=== PATIENT | female | born 2000 | race Two or more races ===

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

== ENCOUNTER 2019-02-19 18:44 | Emergency (ER) | payer OTHER ==
[~2019-02-19] VITALS: Ht 167.6 cm; Wt 57.2 kg
[2019-02-19] MEDS ORDERED: DOLOGEN CAPLET1 EACH PO (20:57)
[2019-02-19] MEDS ORDERED: TUSNEL LIQUID178 ML PO (20:57)
[2019-02-19] MEDS ORDERED: ZITHROMAX500 MG PO (20:57)
[2019-02-19] MEDS ORDERED: IPRAT-ALBUT 0.5-3 ML IH (20:57)
== END 2019-02-19 22:04 | disposition home or self-care (01) ==
LOC: ER 18:44
DX: B34.9 Viral infection, unspecified (principal); J06.9 Acute upper respiratory infection, unspecified

== ENCOUNTER 2019-09-04 15:12 | Emergency (ER) | payer OTHER ==
[~2019-09-04] VITALS: Ht 170.2 cm; Wt 63.0 kg
[~2019-09-04 15:12] MED LIST: DOLOGEN CAPLET1 EACH PO; IPRAT-ALBUT 0.5-3 ML IH; TUSNEL LIQUID178 ML PO; ZITHROMAX500 MG PO
== END 2019-09-04 18:47 | disposition home or self-care (01) ==
LOC: ER 15:12
DX: B34.9 Viral infection, unspecified (principal); Z03.818 Encounter for observation for suspected exposure to other biological agents ruled out

== ENCOUNTER 2020-01-03 14:02 | Emergency (ER) | payer OTHER ==
[~2020-01-03] VITALS: Ht 170.2 cm; Wt 63.5 kg
== END 2020-01-03 21:05 | disposition home or self-care (01) ==
LOC: ER 14:02
DX: J32.8 Other chronic sinusitis (principal); Z20.828 Contact with and (suspected) exposure to other viral communicable diseases; R50.9 Fever, unspecified; R51.9 Headache, unspecified; R53.83 Other fatigue

== ENCOUNTER 2020-08-25 08:43 | Emergency (ER) | payer OTHER ==
[~2020-08-25] VITALS: Ht 170.2 cm; Wt 68.0 kg
== END 2020-08-25 11:52 | disposition home or self-care (01) ==
LOC: EMR PED 08:43
DX: U07.1 COVID-19 (principal); J06.9 Acute upper respiratory infection, unspecified; R50.9 Fever, unspecified